=== PATIENT | female | born 1955 | race Caucasian/White ===

== ENCOUNTER → 2020-11-04 02:41 | Outpatient (CLI) | payer BC, SELFPAY ==
[2020-11-04 21:58] LABS: SARS-CoV-2 RNA PCR Negative
== END ==
PROVIDERS: PCP Internal Medicine; Visit Provider Internal Medicine Gastroenterology
DX: Z01.812 Encounter for preprocedural laboratory examination (principal); Z20.822 Contact with and (suspected) exposure to COVID-19
CPT/HCPCS: C9803; U0003; U0005

== ENCOUNTER 2020-11-07 00:35 | Day surgery (SDC) | payer BC, SELFPAY ==
[2020-10-17 08:16] VITALS: BMI 23.4
--- NOTE | 2020-11-04 09:32 | WPDANESEPPF ---
Anes - Initial Pre Proc Eval Procedure: Operation Date: 11/07/20 08:00 Proposed Procedures p Screening Colonoscopy - Wade Greenberg MD Date/Time: 11/04/20 09:32 Surgeon: Wade Greenberg MD Pre Op Diagnosis: Neoplasm Screening Patient Data Age: 65 Gender: F Height: 1.6 m Weight: 60 kg Allergies Allergy/AdvReac Type Severity Reaction Status Date / Time No Known Allergies Allergy Verified 11/07/20 06:26 Home Medications Medication Instructions Recorded Confirmed Type Prevagen 1 tablet DAILY 10/17/20 10/17/20 History calcium citrate [Citracal] 200 mg PO DAILY 10/17/20 10/17/20 History cholecalciferol (vitamin D3) 50 mcg PO DAILY 10/17/20 10/17/20 History [Vitamin D3] lisinopril 10 mg PO DAILY 10/17/20 10/17/20 History mecobalamin (vitamin B12) 1,000 mcg PO DAILY 10/17/20 10/17/20 History pjtjarkrfzlx-bex-jzxv-FA-vit K 1 tablet PO DAILY 10/17/20 10/17/20 History [Adults Multivitamin] omega-3 fatty acids [[place] 3] 1,000 mg PO DAILY 10/17/20 10/17/20 History simvastatin 5 mg PO DAILY 10/17/20 10/17/20 History Patient hx anesthesia problems: none Family hx anesthesia problems: none [facility] Past Medical History Medical History (Updated 11/04/20 @ 09:32 by Marcelino Julio DO) History of skin cancer Hyperlipidemia Hypertension MVP (mitral valve prolapse) Social History Social History Smoking status: Never smoker Alcohol intake: current Drinks per week: 3 Substance use type: does not use Living arrangements: with family Gender identity (if verbalized by the patient): Female Anes - Eval Final PreProcedure Day of Procedure 11/04/20 09:32 Patient weight: normal Heart: regular rate and rhythm Lungs: clear to auscultation and normal air movement Airway: Mallampati scale class III Neurological: alert and oriented Last oral intake: >/= 8 hours ASA classification: II Emergent: no Anesthetic plan: proceed Anesthesia type and monitoring: general GIVS and standard monitoring Informed Consent: The patient's anesthetic plan and its attendant risks and benefits were discussed with the patient/family/POA. Questions were solicited and answers provided to the satisfaction of the patient/family/POA.
[2020-11-07 06:27] VITALS: BP 138/81; PULSE 90; RESP 16; TEMP 36.4; O2SAT 99
[2020-11-07] MEDS: LACTATED RINGERS 1,000 ML 150 ML IV CONT (06:36)
--- NOTE | 2020-11-07 07:51 | PM.HPGS ---
History of Present Illness History of Present Illness Consent: Risks, benefits, and alternatives have been discussed and questions answered. Patient agrees to proceed with procedure. Chief complaint: Neoplasm Screening Narrative: Cheyanne Ramires is a 65 year old female with last colonoscopy 12 years ago. Review of Systems Constitutional: Constitutional: Denies headache(s) and Denies weakness Eyes: Eyes: Denies blurry vision ENT: Reports Normal hearing present, Denies headache(s) and Denies neck pain Cardiovascular: Cardiovascular: Denies chest pain and Denies dyspnea Respiratory: Respiratory: Denies dyspnea Gastrointestinal: Gastrointestinal: Reports no additional gastrointestinal complaints Genitourinary: Genitourinary: Denies dysuria Musculoskeletal: Musculoskeletal: Denies neck pain Integumentary/Breasts: Skin/Breast: Denies dry skin Neurologic: Reports Normal hearing present, Denies headache(s) and Denies weakness Psychiatric: Psychiatric: Denies anxiety Endocrine: Endocrine: Denies change in body appearance Hematologic/Lymphatic: Hematologic/Lymphatic: Denies easy bleeding Allergic/Immunologic: Allergic/Immunologic: Denies urticaria PMFSH Past Medical History Medical History (Updated 11/07/20 @ 07:52 by Wade Greenberg MD) Colon cancer screening History of skin cancer Hyperlipidemia Hypertension MVP (mitral valve prolapse) Social History Social History Smoking status: Never smoker Alcohol intake: current Drinks per week: 3 Substance use type: does not use Living arrangements: with family Gender identity (if verbalized by the patient): Female Meds Home Medications and Allergies Home Medications Medication Instructions Recorded Confirmed Type Prevagen 1 tablet DAILY 10/17/20 10/17/20 History calcium citrate [Citracal] 200 mg PO DAILY 10/17/20 10/17/20 History cholecalciferol (vitamin D3) 50 mcg PO DAILY 10/17/20 10/17/20 History [Vitamin D3] lisinopril 10 mg PO DAILY 10/17/20 10/17/20 History mecobalamin (vitamin B12) 1,000 mcg PO DAILY 10/17/20 10/17/20 History qvbtwlsfxhbh-lti-ygyz-FA-vit K 1 tablet PO DAILY 10/17/20 10/17/20 History [Adults Multivitamin] omega-3 fatty acids [[place] 3] 1,000 mg PO DAILY 10/17/20 10/17/20 History simvastatin 5 mg PO DAILY 10/17/20 10/17/20 History Allergies Allergy/AdvReac Type Severity Reaction Status Date / Time No Known Allergies Allergy Verified 11/07/20 06:26 Vital Signs Vital Signs - 24 hr 11/07/20 06:27 Temperature 97.5 F L Pulse Rate 90 Respiratory Rate 16 Blood Pressure 138/81 Pulse Oximetry 99 Exam Const: General: comfortable and no acute distress HENMT: General nose exam: Normal nares present Eyes: General: appearance normal, both eyes and all related structures Neck: Neck: no JVD Resp: Auscultation: clear to auscultation bilaterally Cardio: Rate: regular rate Rhythm: regular rhythm GI: Inspection: non-distended GI Palp: Yes Soft to palpation Skin: General skin exam: normal color Neuro: General: gait normal Speech: normal speech Extrem: General: normal to inspection Psych: Mental Status: mental status grossly normal Assessment and Plan Assessment and plan (1) Colon cancer screening: Code(s): Z12.11 - Encounter for screening for malignant neoplasm of colon Status: Acute Assessment and Plan: proceed with colonoscopy
[2020-11-07 08:08] VITALS: BP 101/59; PULSE 78; RESP 16; O2SAT 96
[2020-11-07 08:18] VITALS: BP 100/63; PULSE 66; RESP 17; O2SAT 99
[2020-11-07 08:28] VITALS: BP 116/76; PULSE 62; RESP 20; O2SAT 100
== END 2020-11-07 08:43 | disposition home or self-care (01) ==
PROVIDERS: PCP Internal Medicine; Visit Provider Internal Medicine Gastroenterology
PROC: 0DJD8ZZ Inspection of Lower Intestinal Tract, Via Natural or Artificial Opening Endoscopic (ICD-10-PCS; CPT 45378; principal; 2020-11-07 08:00)
DX: Z12.11 Encounter for screening for malignant neoplasm of colon (principal); K64.8 Other hemorrhoids; I34.1 Nonrheumatic mitral (valve) prolapse; I10 Essential (primary) hypertension; E78.5 Hyperlipidemia, unspecified; Z85.828 Personal history of other malignant neoplasm of skin
CPT/HCPCS: 45378; J2704; J7120

== ENCOUNTER 2023-01-01 09:00 | Outpatient (NON) | payer MEDICARE, OTHER, SELFPAY | END 2023-01-01 09:01 | disposition home or self-care (01) | LOC: ANHLAB 01-02 12:05 | PROVIDERS: PCP Internal Medicine; Visit Provider Nurse Practitioner | DX: D49.2 Neoplasm of unspecified behavior of bone, soft tissue, and skin (principal) | CPT/HCPCS: 88305 ==